=== PATIENT | female | born 1985 | race Hispanic/Latino ===

== ENCOUNTER 2023-08-09 07:30 | Inpatient (IN) | payer MEDICAID, OTHER ==
[2023-08-13 12:41] LABS: Hematocrit 39.2 % (34.9-44.5); Hemoglobin 12.9 g/dL (12.0-15.5); Platelet Count 311 10x3/uL (150-450)
[2023-08-13 13:02] LABS: Syphilis Antibody Nonreactive (Nonreactive); Syphilis Antibody Index 0.04 S/CO (<1.00 Non-Reactive)
[2023-08-13 13:03] LABS: HBSAg Index 0.13 S/CO (0-0.99); Hep B Surf Ag Non-Reactive S/CO (NonReactive)
[2023-08-14] MEDS ORDERED: Bicitra 30 ML UDCUP PO PRN (11:23)
[2023-08-14] MEDS ORDERED: Diphenoxylate HCl/Atropine Tablet PO PRN (11:23)
[2023-08-14] MEDS ORDERED: Ondansetron PF 4 MG/2 ML Vial IVP PRN ×4 (11:23→16:25)
[2023-08-14] MEDS ORDERED: Oxytocin 30 units/NS 500 ML 500 ML IV SCH (11:23)
[2023-08-14] MEDS ORDERED: Methylergonovine 0.2 MG/ML VIAL IM PRN (11:23)
[2023-08-14] MEDS ORDERED: Tranexamic Acid 1,000 MG/10 ML VIAL IVP PRN (11:23)
[2023-08-14] MEDS ORDERED: Promethazine HCl 25 MG/ML VIAL IM PRN ×3 (11:23→16:25)
[2023-08-14] MEDS ORDERED: Lactated Ringer's 1,000 ML IV SCH (11:23)
[2023-08-14] MEDS ORDERED: Famotidine/PF 20 mg/2ml Vial SLOW IVP PRN (11:23)
[2023-08-14] MEDS ORDERED: Misoprostol 200 MCG TAB PR PRN (11:23)
[2023-08-14] MEDS ORDERED: hydrALAZINE 20 MG/ML VIAL SLOW IVP PRN ×2 (11:23→16:25)
[2023-08-14] MEDS ORDERED: Carboprost 250 MCG/ML AMP IM PRN (11:23)
[2023-08-14 11:39] VITALS: BMI 38.2
[2023-08-14] MEDS ORDERED: Morphine PF 10 MG/10 ML VIAL ONE (12:00)
[2023-08-14] MEDS ORDERED: Ondansetron PF 4 MG/2 ML Vial ONE (12:00)
[2023-08-14] MEDS ORDERED: CEFAZOLIN 3 GM in Sodium Chloride 0.9% 100 ML IVPB SCH (12:00)
[2023-08-14] MEDS ORDERED: fentaNYL 50 mcg/mL 1 mL Vial ONE (12:00)
[2023-08-14] MEDS ORDERED: Oxytocin 10 UNITS/ML VIAL ONE ×2 (12:00→13:18)
[2023-08-14] MEDS ORDERED: Phenylephrine 40 MG/NS 250 ML 250 ML ONE (12:00)
[2023-08-14] MEDS ORDERED: ePHEDrine Sulfate 50 MG/10 ML VIAL ONE (12:01)
[2023-08-14] MEDS ORDERED: Ketorolac Tromethamine 30 MG/ML VIAL ONE (13:18)
[2023-08-14 14:05] LABS: HIV (1/2) Antibody/Antigen Non-Reactive (NonReactive); HIV 1/2 INDEX 0.08 S/CO (<1.00)
[2023-08-14] MEDS ORDERED: fentaNYL 50 mcg/mL 1 mL Vial SLOW IVP PRN (14:13)
[2023-08-14] MEDS ORDERED: Ketorolac Tromethamine 30 MG/ML VIAL IVP PRN (14:13)
[2023-08-14] MEDS ORDERED: Promethazine HCl 25 MG SUPP PR PRN (14:13)
[2023-08-14] MEDS ORDERED: Naloxone HCl 0.4 mg/ml Vial IV PRN (14:13)
[2023-08-14] MEDS ORDERED: HYDROmorphone 0.5 MG/0.5 ML SYRINGE SLOW IVP PRN (14:13)
[2023-08-14] MEDS ORDERED: Moisturizing Cream (Eucerin) 113 GM JAR TOP PRN (14:13)
[2023-08-14] MEDS ORDERED: Meperidine HCl/PF 25 MG/ML VIAL SLOW IVP PRN (14:13)
[2023-08-14] MEDS ORDERED: diphenhydrAMINE 50 MG/ML VIAL IVP PRN (14:13)
[2023-08-14] MEDS ORDERED: Naloxone HCl 0.4 mg/ml Vial IVP PRN ×2 (14:13)
[2023-08-14] MEDS ORDERED: Communication Order-Pharmacy FS SCH (14:15)
[2023-08-14] MEDS ORDERED: Ketorolac Tromethamine 30 MG/ML VIAL IVP SCH (14:15)
[2023-08-14] MEDS ORDERED: Bisacodyl 10 MG SUPP PR PRN (16:25)
[2023-08-14] MEDS ORDERED: Boostrix 0.5 ML (Tdap) VIAL (>/=7 yrs of age) IM ONE (16:25)
[2023-08-14] MEDS ORDERED: HYDROcodone/Acetaminophen 5/325 mg Tablet PO PRN (16:25)
[2023-08-14] MEDS ORDERED: Lanolin Ointment 7 GM TUBE TOP PRN (16:25)
[2023-08-14] MEDS ORDERED: diphenhydrAMINE 25 MG CAP PO PRN (16:25)
[2023-08-14] MEDS: Ketorolac Tromethamine 30 MG/ML VIAL IVP SCH (19:04)
[2023-08-14] MEDS: Simethicone Chewable 80 MG TAB PO PRN (21:51)
[2023-08-14] MEDS: Docusate 100 MG CAP PO SCH (21:51)
[2023-08-14] MEDS: Ferrous Sulfate 325 MG TAB PO SCH (21:51)
[2023-08-15] MEDS: Ketorolac Tromethamine 30 MG/ML VIAL IVP SCH ×3 (01:03→13:51)
[2023-08-15 04:17] LABS: Hematocrit 31.5 % (34.9-44.5); Hemoglobin 10.5 g/dL (12.0-15.5); Mean Corpuscular HGB CONC 33.3 g/dL (32.0-36.0); Mean Corpuscular Hemoglobin 27.4 pg (27.0-33.0); Mean Corpuscular Volume 82.2 fl (81.6-98.3); Mean Platelet Volume 10.2 fl (7.4-10.4); Platelet Count 241 10x3/uL (150-450); RBC Distribution Width 14.7 % (11.5-14.5); Red Blood Cell (RBC) Count 3.83 10x6/uL (3.90-5.03); White Blood Cell (WBC) Count 6.9 10x3/uL (3.5-10.5)
[2023-08-15] MEDS: HYDROcodone/Acetaminophen 5/325 mg Tablet PO PRN ×5 (05:08→23:44)
[2023-08-15] MEDS: Simethicone Chewable 80 MG TAB PO PRN ×3 (05:10→23:43)
[2023-08-15] MEDS: Ferrous Sulfate 325 MG TAB PO SCH ×2 (07:23→21:32)
[2023-08-15] MEDS: Prenatal Vitamin 1 TAB PO SCH (08:12)
[2023-08-15] MEDS: Docusate 100 MG CAP PO SCH ×2 (08:12→21:29)
[2023-08-15] MEDS: Ibuprofen 800 MG TAB PO SCH (21:29)
[2023-08-16] MEDS: Simethicone Chewable 80 MG TAB PO PRN ×5 (03:46→22:00)
[2023-08-16] MEDS: HYDROcodone/Acetaminophen 5/325 mg Tablet PO PRN ×5 (03:47→22:01)
[2023-08-16] MEDS: Ibuprofen 800 MG TAB PO SCH ×3 (06:15→22:00)
[2023-08-16] MEDS: Ferrous Sulfate 325 MG TAB PO SCH ×2 (07:32→22:04)
[2023-08-16] MEDS: Prenatal Vitamin 1 TAB PO SCH (09:31)
[2023-08-16] MEDS: Docusate 100 MG CAP PO SCH ×2 (09:31→22:00)
[2023-08-17] MEDS: HYDROcodone/Acetaminophen 5/325 mg Tablet PO PRN ×3 (02:44→13:17)
[2023-08-17] MEDS: Ibuprofen 800 MG TAB PO SCH ×2 (05:57→13:17)
[2023-08-17] MEDS: Ferrous Sulfate 325 MG TAB PO SCH (07:46)
[2023-08-17 07:48] VITALS: BP 110/55; TEMP 97.9
[2023-08-17] MEDS: Docusate 100 MG CAP PO SCH (08:06)
[2023-08-17] MEDS: Prenatal Vitamin 1 TAB PO SCH (08:06)
== END 2023-08-17 15:00 | disposition home or self-care (01) | DRG 788 ==
LOC: CSHLD 08-14 10:45 → CSHPP 08-14 16:20
PROVIDERS: ADMIT Family Medicine; ATTEND Family Medicine
PROC: 10D00Z1 Extraction of Products of Conception, Low, Open Approach (ICD-10-PCS; principal; 2023-08-14)
PROC: 3E033XZ Introduction of Vasopressor into Peripheral Vein, Percutaneous Approach (ICD-10-PCS; 2023-08-14)
PROC: 3E033VJ Introduction of Other Hormone into Peripheral Vein, Percutaneous Approach (ICD-10-PCS; 2023-08-14)
DX: O99.214 Obesity complicating childbirth (principal); O34.211 Maternal care for low transverse scar from previous cesarean delivery; Z3A.39 39 weeks gestation of pregnancy; Z37.0 Single live birth
CPT/HCPCS: 51702; 85014; 85018; 85027; 85049; 86780; 86850; 86900; 86901; 87340; 87389; J1885; J2210; J2274; J2405; J2590; J3010; J3490